=== PATIENT | female | born 1975 | race Caucasian/White ===

== ENCOUNTER 2017-04-01 18:23 | Emergency (ER) | payer SELFPAY ==
[~2017-04-01] VITALS: Ht 167.6 cm; Wt 53.5 kg
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
[2017-04-01 20:04] LABS: INR 2.99 (0.87-1.13); PROTHROMBIN TIME 31.1 SECS (9.5-12.7)
--- NOTE | 2017-04-01 20:17 | NUR ---
Patient discharged to home in stable condition. Written and verbal after care instructions given ny [employer]. Patient verbalizes understanding of instruction. pt instructed not to drive. pt verbalize understanding. pt accompanied by
[2017-04-01 20:34] VITALS: BP 129/74
== END 2017-04-01 20:36 | disposition home or self-care (01) ==
LOC: ER 18:28
DX: S09.8XXA Other specified injuries of head, initial encounter (principal); S00.81XA Abrasion of other part of head, initial encounter; R79.1 Abnormal coagulation profile; Z88.0 Allergy status to penicillin; W22.8XXA Striking against or struck by other objects, initial encounter; Y93.89 Activity, other specified; Y92.89 Other specified places as the place of occurrence of the external cause; Y99.8 Other external cause status
CPT/HCPCS: 36415; 70450; 85610; 99285; A4606; Z7610